=== PATIENT | male | born 1995 | race Caucasian/White ===

== ENCOUNTER 2021-03-11 10:10 | Emergency (ER) | payer OTHER ==
[~2021-03-11] VITALS: Ht 172.7 cm; Wt 97.0 kg
[2021-03-11 12:09] LABS: GC DNA AMPLIFICATION NEGATIVE (NEGATIVE)
[2021-03-11 13:01] VITALS: BP 139/86
[2021-03-11 14:27] LABS: HEPATITIS B SURFACE ANTIBODY NEGATIVE (POSITIVE); HEPATITIS B SURFACE ANTIGEN NEGATIVE (NEGATIVE); HEPATITIS C VIRUS ABY INDEX 0.1 INDEX (<0.8); HIV 1&2 SCREEN CENTAUR NEGATIVE (NEGATIVE)
== END 2021-03-11 13:03 | disposition home or self-care (01) ==
LOC: M ED 10:10
DX: R30.0 Dysuria (principal); F17.200 Nicotine dependence, unspecified, uncomplicated

== ENCOUNTER 2021-11-21 07:20 | Emergency (ER) | payer OTHER ==
[~2021-11-21] VITALS: Ht 172.7 cm; Wt 94.7 kg
[2021-11-21] MEDS ORDERED: KETO10TAB PO (08:49)
[2021-11-21] MEDS ORDERED: DOXY-342 PO (08:49)
[2021-11-21] MEDS ORDERED: DOXYCYCLINE HYCLATE 100MG TABLET PO ONE (08:50)
[2021-11-21] MEDS ORDERED: LIDOCAINE 1% SDV 5ML VIAL DILUENT ONE (08:50)
[2021-11-21] MEDS ORDERED: cefTRIAXone 500MG VIAL (J0696 PER 250MG) IM ONE (08:50)
[2021-11-21] MEDS ORDERED: KETOROLAC TROMETHAMINE 10 MG TAB PO ONE (08:50)
[2021-11-21 09:20] VITALS: BP 132/72
[2021-11-21 10:32] LABS: GC DNA AMPLIFICATION NEGATIVE (NEGATIVE)
== END 2021-11-21 09:25 | disposition home or self-care (01) ==
LOC: M ED 07:20
DX: N45.1 Epididymitis (principal); Z90.89 Acquired absence of other organs
CPT/HCPCS: 76870; 81001; 87810; 87850; 93976; 96372; 99283; J0696

== ENCOUNTER 2021-12-12 07:06 | Emergency (ER) | payer OTHER ==
[~2021-12-12] VITALS: Ht 172.7 cm; Wt 93.3 kg
[2021-12-12 07:06] VITALS: BP 141/91
[~2021-12-12 07:06] MED LIST: DOXY-342 PO; KETO10TAB PO
[2021-12-12 08:40] LABS: BASO % 0.7 % (0.0-1.0); EOS # 0.2 10^3/uL (0.0-0.5); EOS % 4.5 % (0.0-3.0); HEMATOCRIT 46.1 % (42.0-52.0); LYMPH # 1.7 10^3/uL (1.5-5.0); LYMPH % 31.3 % (24.0-44.0); MEAN CORPUSCULAR HEMOGLOBIN 30.1 pg (27.0-33.0); MEAN CORPUSCULAR HGB CONC 34.7 g/dl (32.0-36.5); MEAN CORPUSCULAR VOLUME 86.8 fl (80.0-96.0); MONO # 0.3 10^3/uL (0.0-0.8); MONO % 6.3 % (2.0-8.0); NEUTROPHILS % 56.8 % (36.0-66.0); PLATELET COUNT, AUTOMATED 219 10^3/uL (150-450); RED BLOOD COUNT 5.31 10^6/uL (4.30-6.10); WHITE BLOOD COUNT 5.4 10^3/uL (4.0-10.0)
[2021-12-12 09:18] LABS: ALBUMIN 4.4 GM/DL (3.2-5.2); ALT/SGPT 39 U/L (12-78); BILIRUBIN,DIRECT 0.1 MG/DL (0.0-0.2); BILIRUBIN,TOTAL 0.7 MG/DL (0.2-1.0); BLOOD UREA NITROGEN 11 MG/DL (7-18); CALCIUM LEVEL 9.9 MG/DL (8.5-10.1); CARBON DIOXIDE LEVEL 28 MEQ/L (21-32); CHLORIDE LEVEL 106 MEQ/L (98-107); CREATININE FOR GFR 0.88 MG/DL (0.70-1.30); GLOMERULAR FILTRATION RATE > 60.0 (>60); GLUCOSE, FASTING 84 MG/DL (70-100); LIPASE 149 U/L (73-393); POTASSIUM SERUM 4.4 MEQ/L (3.5-5.1); SODIUM LEVEL 138 MEQ/L (136-145); TOTAL PROTEIN 7.7 GM/DL (6.4-8.2)
[2021-12-13] MEDS ORDERED: COLA100C5 PO (15:09)
== END 2021-12-12 13:06 | disposition home or self-care (01) ==
LOC: M ED 07:06
DX: N44.2 Benign cyst of testis (principal); F17.200 Nicotine dependence, unspecified, uncomplicated

== ENCOUNTER 2021-12-13 09:45 | Emergency (ER) | payer OTHER ==
[~2021-12-13] VITALS: Ht 172.7 cm; Wt 92.3 kg
[2021-12-13] MEDS ORDERED: ISOVUE-370 76% 100ML VIAL As Ordered ONE (13:07)
[2021-12-13 13:12] LABS: BASO # 0.1 10^3/uL (0.0-0.2); BASO % 0.7 % (0.0-1.0); EOS # 0.1 10^3/uL (0.0-0.5); EOS % 1.5 % (0.0-3.0); HEMATOCRIT 47.3 % (42.0-52.0); HEMOGLOBIN 15.9 g/dl (13.5-17.5); LYMPH # 1.7 10^3/uL (1.5-5.0); MEAN CORPUSCULAR HEMOGLOBIN 29.3 pg (27.0-33.0); MEAN CORPUSCULAR HGB CONC 33.6 g/dl (32.0-36.5); MEAN CORPUSCULAR VOLUME 87.1 fl (80.0-96.0); MONO # 0.4 10^3/uL (0.0-0.8); MONO % 4.6 % (2.0-8.0); NEUTROPHILS # 5.4 10^3/uL (1.5-8.5); NEUTROPHILS % 70.8 % (36.0-66.0); PLATELET COUNT, AUTOMATED 230 10^3/uL (150-450); RED BLOOD COUNT 5.43 10^6/uL (4.30-6.10); WHITE BLOOD COUNT 7.6 10^3/uL (4.0-10.0)
[2021-12-13 13:21] LABS: INR 0.98; PROTHROMBIN TIME 13.4 SECONDS (12.7-14.5)
[2021-12-13 13:22] LABS: PARTIAL THROMBOPLASTIN TIME 26.9 SECONDS (25.9-37.0)
[2021-12-13 13:58] LABS: ALBUMIN 4.4 GM/DL (3.2-5.2); ALT/SGPT 45 U/L (12-78); BILIRUBIN,DIRECT < 0.1 MG/DL (0.0-0.2); BILIRUBIN,TOTAL 0.8 MG/DL (0.2-1.0); LIPASE 109 U/L (73-393); TOTAL PROTEIN 8.1 GM/DL (6.4-8.2)
[2021-12-13] MEDS ORDERED: COLA100C5 PO (15:09)
[2021-12-13 15:22] VITALS: BP 160/58
== END 2021-12-13 15:25 | disposition home or self-care (01) ==
LOC: M ED 09:45
DX: K62.5 Hemorrhage of anus and rectum (principal); K13.70 Unspecified lesions of oral mucosa; F17.290 Nicotine dependence, other tobacco product, uncomplicated
CPT/HCPCS: 36415; 74177; 80047; 80076; 83690; 85025; 85610; 85730; 99284; Q9967